=== PATIENT | male | born 1985 | race African-American/Black ===

== ENCOUNTER 2016-10-25 19:35 | Emergency (ER) | payer OTHER ==
[~2016-10-25] VITALS: Ht 180.3 cm; Wt 95.3 kg
[2016-10-25] MEDS ORDERED: IBUPROFEN 100 MG/5 ML ORAL.SUSP. PO ONE (20:45)
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
[2016-10-25] MEDS ORDERED: CYCL10TA2 PO (21:45)
[2016-10-25] MEDS ORDERED: NAPR500T PO (21:45)
[2016-10-25 22:00] VITALS: BP 157/102
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
== END 2016-10-25 22:00 | disposition home or self-care (01) ==
LOC: ER 19:35
DX: S90.411A Abrasion, right great toe, initial encounter (principal); M54.2 Cervicalgia; M25.512 Pain in left shoulder; F12.10 Cannabis abuse, uncomplicated; I10 Essential (primary) hypertension; V50.1XXA Passenger in pick-up truck or van injured in collision with pedestrian or animal in nontraffic accident, initial encounter; Y93.89 Activity, other specified; Y92.410 Unspecified street and highway as the place of occurrence of the external cause; Y99.8 Other external cause status
CPT/HCPCS: 72125; 73030; 73660; 96372; 99284; J3360